=== PATIENT | female | born 2000 | race Caucasian/White ===

== ENCOUNTER 2018-08-14 21:03 | Emergency (ER) | payer OTHER ==
[2018-08-14 21:10] VITALS: BP 106/66; PULSE 114; TEMP 98.6; BMI 24.7
== END 2018-08-14 22:20 | disposition left against medical advice (07) ==
LOC: JER 21:03
DX: Z53.21 Procedure and treatment not carried out due to patient leaving prior to being seen by health care provider (principal)
CPT/HCPCS: 99282-25